=== PATIENT | male | born 1945 ===

== ENCOUNTER → 2016-09-06 | Outpatient (CLI) | payer MEDICARE, OTHER ==
[2006-02-14 10:20] VITALS: TEMP 97.7
== END ==
LOC: MHCPAIN 08:46
DX: G89.29 Other chronic pain (principal); M47.27 Other spondylosis with radiculopathy, lumbosacral region; M48.06 Spinal stenosis, lumbar region
CPT/HCPCS: G0463

== ENCOUNTER → 2016-09-12 | Outpatient (CLI) | payer MEDICARE, OTHER | LOC: MHCPAIN 07:28 | DX: M47.817 Spondylosis without myelopathy or radiculopathy, lumbosacral region (principal) ==

== ENCOUNTER → 2016-09-17 | Outpatient (CLI) | payer MEDICARE, OTHER | LOC: MHCPAIN 10:43 | DX: G89.29 Other chronic pain (principal); M47.27 Other spondylosis with radiculopathy, lumbosacral region; M53.3 Sacrococcygeal disorders, not elsewhere classified; M96.1 Postlaminectomy syndrome, not elsewhere classified | CPT/HCPCS: G0463 ==

== ENCOUNTER → 2016-09-19 | Outpatient (CLI) | payer MEDICARE, OTHER | LOC: MHCPAIN 11:31 | DX: M47.817 Spondylosis without myelopathy or radiculopathy, lumbosacral region (principal) ==

== ENCOUNTER → 2016-09-25 | Outpatient (CLI) | payer MEDICARE, OTHER | LOC: MHCPAIN 10:33 | DX: G89.29 Other chronic pain (principal); M47.27 Other spondylosis with radiculopathy, lumbosacral region; M96.1 Postlaminectomy syndrome, not elsewhere classified | CPT/HCPCS: G0463 ==

== ENCOUNTER → 2016-10-03 | Outpatient (CLI) | payer MEDICARE, OTHER | LOC: MHCPAIN 08:38 | DX: M47.817 Spondylosis without myelopathy or radiculopathy, lumbosacral region (principal) | CPT/HCPCS: J1100 ==

== ENCOUNTER → 2016-12-06 | Outpatient (CLI) | payer MEDICARE, OTHER | LOC: MHCPAIN 09:37 | DX: G89.29 Other chronic pain (principal); M47.817 Spondylosis without myelopathy or radiculopathy, lumbosacral region; M54.16 Radiculopathy, lumbar region; M96.1 Postlaminectomy syndrome, not elsewhere classified | CPT/HCPCS: G0463 ==

== ENCOUNTER → 2021-06-06 | Outpatient (CLI) | payer OTHER | LOC: COL.RAD 09:19 | DX: K76.9 Liver disease, unspecified (principal); E83.118 Other hemochromatosis | CPT/HCPCS: A9585 ==

== ENCOUNTER 2021-09-19 05:23 | Day surgery (SDC) | payer MEDICARE ==
[~2021-09-19] VITALS: Ht 165.1 cm; Wt 61.1 kg
[2021-09-19 05:47] VITALS: BP 159/62; PULSE 57; TEMP 97.3
[2021-09-19] MEDS ORDERED: LIPITOR20 MG PO (06:18)
[2021-09-19] MEDS ORDERED: NORVASC 10MG10 MG PO (06:18)
[2021-09-19] MEDS ORDERED: LIPITOR 10MG10 MG PO (06:18)
[2021-09-19] MEDS ORDERED: PRINIVIL40 MG PO (06:18)
[2021-09-19] MEDS ORDERED: DETROL LA4 PO (06:19)
[2021-09-19] MEDS ORDERED: TOPROL XL 25MG25 MG PO (06:19)
[2021-09-19] MEDS ORDERED: CENTRUM SILVER1 TAB PO (06:20)
[2021-09-19] MEDS ORDERED: ASPIRIN 81M81 MG/TA2 PO (06:20)
[2021-09-19] MEDS ORDERED: NORCO 325 MG-51 TAB PO (08:58)
[2021-09-19 09:40] VITALS: BP 150/78; PULSE 77; TEMP 97.3
--- NOTE | 2021-09-19 09:40 | NUR ---
The patient arrived back to [facility] from the recovery room at this time. The patient appears alert and oriented and reports minimal pain and no nausea at this time. Post operative vital signs were started at this time. The patient has four bandaids to his abdomen that appear clean, dry and intact. The patient has scrotal support in place at this time. The patient has ice chips at his bedside and appears to be tolerating them well. The patient's was brought back to be at his bedside.
[2021-09-19 09:55] VITALS: BP 148/68; PULSE 74
--- NOTE | 2021-09-19 09:55 | NUR ---
The patient appears to be tolerating the ice chips well and agrees to try some vanilla pudding. Vital signs appear stable. Call light is within reach. remains at his bedside. Will continue to monitor the patient.
[2021-09-19 10:10] VITALS: BP 159/79; PULSE 73
--- NOTE | 2021-09-19 10:10 | NUR ---
The patient has finished the food and drink and appeared to tolerate both well. The patient denies wanting anything further at this time. Call light is within reach. remains at his bedside.
--- NOTE | 2021-09-19 10:20 | NUR ---
The patient ambulated to the bathroom with the stand by assistane and appeared to tolerate the activity well. The nurse instructed the patient that if he is successful in voiding that he can get dressed and notify the staff when he is ready to review his discharge instructions.
--- NOTE | 2021-09-19 10:40 | NUR ---
The patient was escorted out via wheelchair to a private vehicle by ANITA Li. The patient's belongings and discharge paperwork were sent with him. The patient's is present to drive him home.
== END 2021-09-19 10:40 | disposition home or self-care (01) ==
LOC: SDCO 05:23
DX: K66.8 Other specified disorders of peritoneum (principal); Z79.82 Long term (current) use of aspirin
CPT/HCPCS: A4314; J0690; J1100; J1170; J2370; J2405; J2704; J3010; J7120

== ENCOUNTER → 2022-07-24 | Outpatient (CLI) | payer OTHER ==
[~2022-07-24] MED LIST: ASPIRIN 81M81 MG/TA2 PO; CENTRUM SILVER1 TAB PO; DETROL LA4 PO; LIPITOR 10MG10 MG PO; LIPITOR20 MG PO; NORCO 325 MG-51 TAB PO; NORVASC 10MG10 MG PO; PRINIVIL40 MG PO; TOPROL XL 25MG25 MG PO
== END ==
LOC: MHCPAIN 09:45
DX: M47.817 Spondylosis without myelopathy or radiculopathy, lumbosacral region (principal); M54.50 Low back pain, unspecified; M53.3 Sacrococcygeal disorders, not elsewhere classified; M96.1 Postlaminectomy syndrome, not elsewhere classified
CPT/HCPCS: G0463

== ENCOUNTER → 2022-08-08 | Outpatient (CLI) | payer OTHER | LOC: MHCPAIN 08:48 | DX: M54.16 Radiculopathy, lumbar region (principal); M96.1 Postlaminectomy syndrome, not elsewhere classified; M54.50 Low back pain, unspecified; M53.3 Sacrococcygeal disorders, not elsewhere classified | CPT/HCPCS: C1883; J0690; J2250; J3010 ==

== ENCOUNTER → 2022-08-15 | Outpatient (CLI) | payer OTHER | LOC: MHCPAIN 10:46 ==

== ENCOUNTER → 2023-02-04 | Outpatient (CLI) | payer OTHER | LOC: MHCPAIN 10:14 | DX: M48.061 Spinal stenosis, lumbar region without neurogenic claudication (principal); M96.1 Postlaminectomy syndrome, not elsewhere classified; M47.896 Other spondylosis, lumbar region | CPT/HCPCS: G0463 ==

== ENCOUNTER → 2023-03-04 | Outpatient (CLI) | payer OTHER ==
[~2023-03-04] MED LIST changes: +GINKGO60 MG PO; -LIPITOR 10MG10 MG PO; +MOBIC15 MG PO; +ULTRAM 50MG TAB50 MG PO
== END ==
LOC: MHCPAIN 08:41
DX: M54.16 Radiculopathy, lumbar region (principal); M96.1 Postlaminectomy syndrome, not elsewhere classified; M47.896 Other spondylosis, lumbar region
CPT/HCPCS: G0463

== ENCOUNTER 2023-03-11 12:57 | Inpatient (IN) | payer OTHER ==
[~2023-03-11] VITALS: Ht 165.1 cm; Wt 58.4 kg
[~2023-03-11 12:57] MED LIST changes: -ASPIRIN 81M81 MG/TA2 PO; -GINKGO60 MG PO; -MOBIC15 MG PO; -ULTRAM 50MG TAB50 MG PO
[2023-03-11 13:00] VITALS: BP_SYST 132
--- NOTE | 2023-03-11 13:07 | NUR ---
1116-RECEIVED A PHONE CALL FROM DR. CARRINGTON AT [facility] REQUESTING TRANSFER FOR PATIENT WHO HAS GIB. CALL TRANSFERRED TO DR. YOUNG WHO SPOKE WITH GI WHO AGREED TO CONSULT ON PATIENT. DR. YOUNG ACCEPTED PATIENT FOR INPATIENT STATUS FOR ADMISSION HERE.
--- NOTE | 2023-03-11 16:00 | NUR ---
pt admitted to room by EMS. notified [facility] of pts arrival. pt a&ox4, at bedside. assisted pt to bathroom, gait steady. vss. INT to left forearm and right forearm. call light in reach.
[2023-03-11 16:11] VITALS: BP 132/56; PULSE 62; TEMP 98.4
[2023-03-11 17:24] VITALS: BP_SYST 132
[2023-03-11] MEDS ORDERED: ULTRAM 50MG TAB50 MG PO (17:28)
[2023-03-11] MEDS ORDERED: MOBIC15 MG PO (17:28)
[2023-03-11 17:33] LABS: HEMATOCRIT 25.6 % (42.0-52.0); HEMOGLOBIN 8.4 g/dl (13.5-18.0)
[2023-03-11] MEDS ORDERED: GINKGO60 MG PO (18:02)
[2023-03-11 19:54] VITALS: BP 143/70; PULSE 66; TEMP 97.8
--- NOTE | 2023-03-11 20:00 | NUR ---
PT DRINKING BOWEL PREP WITHOUT N/V. HAS IVF TO RFA INFUSING WITHOUT PROBLEM. INT TO LFA FLUSHED. IS ALERT AND ORIENTED X4. DENIES PAIN. WILL HAVE COLONOSCOPY IN AM.
[2023-03-11 21:00] VITALS: BP_SYST 143
--- NOTE | 2023-03-11 22:00 | NUR ---
VISUALIZED PTS BM, HAS SEDIMENT LIKE STOOL WITH YELLOW WATER, PT ALMOST FINISHED WITH BOWEL PREP. SMALL AMOUNT OF BLEEDING FROM RECTUM WITH WIPING, FEW DROPS OF BLOOD NOTED IN TOILET.
[2023-03-11 23:58] VITALS: BP 126/57; PULSE 63; TEMP 98
[2023-03-12] VITALS (11 sets, daily range): BP systolic 99–136; BP diastolic 50–76; PULSE 60–76; TEMP 97–98.5
[2023-03-12 00:45] LABS: HEMATOCRIT 23.6 % (42.0-52.0)
[2023-03-12 06:53] LABS: BASO # 0.1 K/mm3 (0.0-0.2); EOS # 0.1 K/mm3 (0.0-0.7); EOS % 1.9 % (0.0-4.0); GRAN # 3.6 K/mm3 (1.4-6.5); GRAN % 60.4 % (42.2-75.2); LYMPH # 1.7 K/mm3 (1.2-3.4); LYMPH % 28.3 % (20.0-51.0); MEAN CELL VOLUME 92 fl (80.0-100.0); MEAN CORPUSCULAR HGB CONC 34 g/dl (33.0-37.0); MEAN PLATELET VOLUME 9.9 fl (7.4-10.4); MONO # 0.5 K/mm3 (0.1-0.6); MONO % 8.1 % (1.7-9.3); PLATELET COUNT 221 K/mm3 (130-400); RED BLOOD COUNT 2.72 M/mm3 (4.20-5.60); REDCELL DISTRIBUTION WIDTH-CV 13.4 % (11.5-14.5)
[2023-03-12 06:54] LABS: HEMATOCRIT 25.1 % (42.0-52.0); HEMOGLOBIN 8.4 g/dl (13.5-18.0); MEAN CORPUSCULAR HEMOGLOBIN 31 pg (27-31)
[2023-03-12 07:00] LABS: CALCIUM 8.6 mg/dL (8.4-10.2); CREATININE, serum 0.85 mg/dL (0.72-1.25); POTASSIUM 3.8 mmol/L (3.5-4.5)
--- NOTE | 2023-03-12 08:24 | NUR ---
pt resting in bed, a&ox4. vss. pt denies pain. pt tolerated bowel prep overnight. pt denies blood in his stool this morning. no needs at this time. INT to left forearm patent. fluids infusing into right forearm. call light in reach.
[2023-03-12] MEDS ORDERED: MOBIC15 MG PO (08:48)
[2023-03-12] MEDS ORDERED: ASPIRIN 81M81 MG/TA2 PO (10:07)
--- NOTE | 2023-03-12 10:42 | NUR ---
pt off floor for surgery
--- NOTE | 2023-03-12 11:25 | NUR ---
yarn dry room worker met with Patient and at bedside to concuct Care Managment Assessment and discuss discharge planning. Marimar lives in [place], [place] with his and is established with PCP Lydia Clemons. Patient is covered by [facility], [employer], And [place] [employer] for insurance. Patient requests discharge medications be sent to [facility] in [place], [place]. Patient denies the use of DME prior to admission and endorses independency with ADL/IADLs. Patient anticiptes discharging home when medically ready. Patient states to not have DPOAHC and declines form at this time. Discharge Plan: Home
--- NOTE | 2023-03-12 11:51 | NUR ---
pt back in room from colonoscopy. pt a&ox4, family at bedside. vss.
--- NOTE | 2023-03-12 13:30 | NUR ---
LF and RF INT's discontinued. vss. discharge instructions given to pt and family, all questions answered. pt ambulated to personal vehicle.
--- NOTE | 2023-03-12 13:42 | NUR ---
Initial visit; Patient, his and family member thanked [employer] for looking in on him and offering Spiritual Care. Patient and family are from [place] and conversation turned to the [employer] in [place] and their yazidism in . A really nice family. Patient said he was ready to be discharged, he's leaving today and is unable to order food now. [employer] wished him well.
== END 2023-03-12 13:30 | disposition home or self-care (01) | DRG 378 ==
LOC: SURG 13:42
PROVIDERS: Internal Medicine Gastroenterology; ADMIT Internal Medicine
PROC: 0DBL8ZX Excision of Transverse Colon, Via Natural or Artificial Opening Endoscopic, Diagnostic (ICD-10-PCS; principal; 2023-03-12 11:00)
DX: K57.31 Diverticulosis of large intestine without perforation or abscess with bleeding (principal); D62 Acute posthemorrhagic anemia; I10 Essential (primary) hypertension; N40.0 Benign prostatic hyperplasia without lower urinary tract symptoms; I34.0 Nonrheumatic mitral (valve) insufficiency; D12.6 Benign neoplasm of colon, unspecified; K64.0 First degree hemorrhoids; E61.1 Iron deficiency; Z79.82 Long term (current) use of aspirin; Z79.899 Other long term (current) drug therapy
CPT/HCPCS: C9113; J2704; J7030; J7120

== ENCOUNTER → 2023-06-04 | Outpatient (CLI) | payer OTHER ==
[~2023-06-04] MED LIST changes: +ASPIRIN 81M81 MG/TA2 PO; +GINKGO60 MG PO; +MOBIC15 MG PO; +ULTRAM 50MG TAB50 MG PO
== END ==
LOC: MHCPAIN 08:49
DX: M47.896 Other spondylosis, lumbar region (principal); M96.1 Postlaminectomy syndrome, not elsewhere classified
CPT/HCPCS: G0463

== ENCOUNTER → 2024-02-27 | Outpatient (CLI) | payer OTHER | LOC: MHCPAIN 08:58 | DX: M47.26 Other spondylosis with radiculopathy, lumbar region (principal); M96.1 Postlaminectomy syndrome, not elsewhere classified; M48.07 Spinal stenosis, lumbosacral region; M54.50 Low back pain, unspecified; G89.29 Other chronic pain; Z96.82 Presence of neurostimulator | CPT/HCPCS: G0463 ==